=== PATIENT | female | born 1990 | race Two or more races ===

== ENCOUNTER 2016-05-01 08:36 | Emergency (ER) | payer MEDICAID ==
[~2016-05-01] VITALS: Ht 157.5 cm; Wt 63.5 kg
[2016-05-01] MEDS ORDERED: IV SET PRIMARY 1 EA INFUS.SET MC ONE (09:17)
[2016-05-01] MEDS ORDERED: IV NS 0.9% 1,000 ML ONE (09:17)
[2016-05-01] MEDS ORDERED: IV NS 0.9% 1,000 ML BAG IV ONE (09:30)
[2016-05-01 09:39] LABS: CALCIUM, SERUM 8.9 mg/dL (8.5-10.1); CREATININE 0.8 mg/dL (0.6-1.3); POTASSIUM 3.9 mmol/L (3.5-5.1)
[2016-05-01 09:44] LABS: BASOPHILS % (AUTO) 0.6 % (0.0-2.0); DIFF TOTAL % 100 %; EOSINOPHILS % (AUTO) 0.6 % (0.0-6.0); HEMATOCRIT 41 % (33-45); HEMOGLOBIN 13.6 g/dL (11.5-14.8); LYMPHOCYTES # (AUTO) 2.1 /CMM (0.8-4.8); MEAN CORPUSCULAR HEMOGLOBIN 29 PG (26.0-33.0); MEAN CORPUSCULAR HGB CONC 33 g/dl (31.0-36.0); MEAN CORPUSCULAR VOLUME 86 fL (82-100); MONOCYTES # (AUTO) 0.3 /CMM (0.1-1.30); MONOCYTES % (AUTO) 5.9 % (2.0-12.0); NEUTROPHILS # (AUTO) 3.2 /CMM (1.8-8.9); NEUTROPHILS % (AUTO) 55.9 % (43.0-81.0); PLATELET COUNT (AUTO) 265 /CMM (150-450); RED BLOOD CELL COUNT(AUTO) 4.77 MIL/uL (4.0-5.2); WHITE BLOOD COUNT (AUTO) 5.8 K/uL (4.3-11.0)
== END 2016-05-01 10:33 | disposition home or self-care (01) ==
LOC: ER 08:41
DX: E86.0 Dehydration (principal); R74.8 Abnormal levels of other serum enzymes
CPT/HCPCS: 36415; 80048-TC; 82550-TC; 85025-TC; A4606; J7030